=== PATIENT | female | born 1970 | race Caucasian/White ===

== ENCOUNTER 2020-10-13 14:48 | Emergency (ER) | payer SELFPAY ==
[2020-10-13] MEDS ORDERED: ACETAMINOPHEN 325 MG TABLET (FP) PO ONE (14:51)
[2020-10-13 15:09] VITALS: BP 150/107; PULSE 90; TEMP 98; BMI 26.4
== END 2020-10-13 15:20 | disposition home or self-care (01) ==
LOC: FER 14:48
DX: M25.511 Pain in right shoulder (principal)
CPT/HCPCS: 99283-25